=== PATIENT | female | born 1990 | race Asian ===

== ENCOUNTER 2016-11-10 08:30 | Emergency (ER) | payer OTHER ==
[2016-11-10 08:56] VITALS: BP 102/68
--- NOTE | 2016-11-10 09:35 | UC ---
Complaint Female HPI - HPI Summary HPI Summary: C/O SHABAZZ/WHITE THICK STICKY VAGINAL DISCHARGE AND ITCHING. SOME BURNING WITH URINATION. NO FREQUENCY. PT HAS HAD YEAST INFECTIONS BEFORE AND THIS FEELS SIMILAR. NO HIGH RISK SEXUAL ACTIVITY. NO FEVER. - History Of Current Complaint Stated Complaint: FREQUENT URINATION Time Seen by Provider: 11/10/16 08:32 Hx Obtained From: Patient Hx Last Menstrual Period: 09/23/16 Onset/Duration: Gradual Onset, Still Present Timing: Constant Severity Initially: Mild Severity Currently: Mild Pain Intensity: 2 Pain Scale Used: 0-10 Numeric Aggravating Factor(s): Nothing Alleviating Factor(s): Nothing Associated Signs And Symptoms: Positive: Vaginal Discharge - Allergies/Home Medications Allergies/Adverse Reactions: Allergies Allergy/AdvReac Type Severity Reaction Status Date / Time No Known Allergies Allergy Verified 11/10/16 08:49 PMH/Surg Hx/FS Hx/Imm Hx Previously Healthy: Yes - Surgical History Surgical History: Yes Surgery Procedure, Year, and Place: breast biopsy - Family History Known Family History: Negative: Hypertension - Social History Alcohol Use: Occasionally Substance Use Type: None Smoking Status (MU): Never Smoked Tobacco - Immunization History Most Recent Influenza Vaccination: fall 2015 Review of Systems Constitutional: Negative Respiratory: Negative Cardiovascular: Negative Gastrointestinal: Negative Genitourinary: Dysuria, Other - VAGINAL D/C All Other Systems Reviewed And Are Negative: Yes Physical Exam Triage Information Reviewed: Yes Appearance: Well-Appearing, No Pain Distress, Well-Nourished Vital Signs: Initial Vital Signs Temp 97.9 F 11/10/16 08:50 Pulse 60 11/10/16 08:50 Resp 16 11/10/16 08:50 BP 102/68 11/10/16 08:50 Pulse Ox 100 11/10/16 08:50 Vital Signs Reviewed: Yes Eyes: Positive: Conjunctiva Clear ENT: Positive: Hearing grossly normal Neck: Positive: Supple Respiratory: Positive: No respiratory distress, No accessory muscle use Cardiovascular: Positive: Pulses Normal Abdomen Description: Positive: Nontender, Soft Musculoskeletal: Positive: No Edema Neurological: Positive: Alert Psychological: Positive: Age Appropriate Behavior Skin: Negative: rashes Diagnostics - Laboratory Diagnostic Studies Completed/Ordered: URINE DIP SP. GR. 1.000 Complaint Female Dx - Course Course Of Treatment: PT HAS APPT FOR STI SCREENING AND PELVIC AT [facility] NEXT WEEK. SHE WOULD PREFER TO DEFER PELVIC AT THIS TIME. WILL TREAT EMPIRICALLY FOR YEAST VAGINITIS. ADVISED PT THAT IF SX DO NOT IMPROVE SHE MAY HAVE A DIFFERENT FORM OF VAGINITIS AND WILL NEED TO BE RE-EVALUATED. - Differential Dx/Diagnosis Provider Diagnoses: VAGINITIS Discharge - Discharge Plan Condition: Stable Disposition: HOME Prescriptions: Fluconazole [Diflucan] 1 tab PO ONCE #2 tab Patient Education Materials: Vaginitis (ED) Referrals: Kathie Arnett NP [Primary Care Provider] - If Needed Additional Instructions: FOLLOW-UP PCP OR [facility] IF NEEDED
== END 2016-11-10 09:15 | disposition home or self-care (01) ==
LOC: UCEAST 08:30
DX: N76.0 Acute vaginitis (principal)
CPT/HCPCS: 81002; 99212; G0463

== ENCOUNTER 2017-04-07 18:30 | Emergency (ER) | payer OTHER ==
[2017-04-07 18:37] VITALS: BP 104/65
[2017-04-07] MEDS ORDERED: Sulfamethox/Trimethoprim DS 800/160* TAB PO ONE ×2 (19:13)
--- NOTE | 2017-04-08 00:09 | UC ---
Lopez Grossman Aidan, scribed for Tessie Alex MD on 04/07/17 at 1913 . Complaint Female HPI - HPI Summary HPI Summary: 26 y/o female presents to the Urgent Care with a complaint of acute, moderate episodes of dysuria and urgency that has worsened as the day has progressed. She also has acute, mild suprapubic abdominal tenderness. Symptoms were first noticed this morning. The patient just took a test that was negative and recently had an IUD placed. Pt took azo prior to coming to . Pt is a new graduate of [employer] and is currently residing in [place], and is here for a wedding. Other than taking seasonal allergy medication, she is not currently on any chronic medication. Pt denies any allergies to medications. - History Of Current Complaint Chief Complaint: [facility]CGU Stated Complaint: FREQUENT URINATION Time Seen by Provider: 04/07/17 18:42 Hx Obtained From: Patient Hx Last Menstrual Period: 03/07/17 ?: No Onset/Duration: Sudden Onset, Lasting Hours, Still Present Timing: Intermittent, Lasting Minutes - before and during urination Severity Initially: Moderate Severity Currently: Moderate Pain Intensity: 4 Pain Scale Used: 0-10 Numeric Radiates to: pain does not radiate Character: Burning Aggravating Factor(s): Nothing Alleviating Factor(s): Nothing Associated Signs And Symptoms: Negative: Negative - urgency, mild suprapubic abdominal tenderness, Fever, Back Pain, Vaginal Bleeding/Discharge, Vaginal Discharge - Risk Factors Ovarian Torsion Risk Factor: Reproductive Age - Allergies/Home Medications Allergies/Adverse Reactions: Allergies Allergy/AdvReac Type Severity Reaction Status Date / Time No Known Allergies Allergy Verified 04/07/17 18:35 Home Medications: Home Medications Phenazopyridine HCl [Azo Urinary Pain Relief] 95 mg PO PRN 04/07/17 [History] PMH/Surg Hx/FS Hx/Imm Hx Previously Healthy: Yes - Surgical History Surgical History: Yes Surgery Procedure, Year, and Place: breast biopsy - Family History Known Family History: Positive: Diabetes Negative: Hypertension - Social History Occupation: Unemployed - Pt just graduated [employer] at [employer] Lives: Alone Alcohol Use: Occasionally Substance Use Type: None Smoking Status (MU): Never Smoked Tobacco - Immunization History Most Recent Influenza Vaccination: fall 2015 Review of Systems Constitutional: Negative Skin: Negative Eyes: Negative ENT: Negative Respiratory: Negative Cardiovascular: Negative Gastrointestinal: Negative Genitourinary: Dysuria, Frequency, Urgency Motor: Negative Neurovascular: Negative Musculoskeletal: Negative Neurological: Negative Psychological: Negative All Other Systems Reviewed And Are Negative: Yes Physical Exam Triage Information Reviewed: Yes Appearance: Well-Appearing, Well-Nourished, Pain Distress Vital Signs: Initial Vital Signs Temp 98.4 F 04/07/17 18:34 Pulse 70 04/07/17 18:34 Resp 16 04/07/17 18:34 BP 104/65 04/07/17 18:34 Pulse Ox 98 04/07/17 18:34 Vital Signs Reviewed: Yes Eyes: Positive: Conjunctiva Clear ENT: Positive: Normal ENT inspection, Hearing grossly normal. Negative: Muffled /hoarse voice Neck: Positive: Supple Respiratory: Positive: Lungs clear, Normal breath sounds, No respiratory distress Cardiovascular: Positive: RRR, No Murmur, Pulses Normal, Brisk Capillary Refill Abdomen Description: Positive: No Organomegaly, Soft. Negative: Nontender - minimal suprapubic tenderness, CVA Tenderness (R), CVA Tenderness (L), Distended , Guarding, Hepatomegaly, McBurney's Point Tenderness, Peritoneal Signs, Pulsatile Mass, Splenomegaly Bowel Sounds: Positive: Present Musculoskeletal: Positive: Strength Intact, ROM Intact Neurological: Positive: Alert, Muscle Tone Normal Psychological Exam: Normal Skin Exam: Normal Complaint Female Dx - Course Course Of Treatment: 26 y/o female presents with intermittent episodes of dysuria and urgency. test was negative. Pt had taken azo prior to coming to , so urine was sent for culture, and she will be treated empirically. She will be given bactrim and discharged with a dx of UTI. - Differential Dx/Diagnosis Differential Diagnosis/HQI/PQRI: Renal Colic, Ureteral Stone, Urinary Tract Infection Provider Diagnoses: Urinary Tract Infection Discharge - Discharge Plan Condition: Stable Disposition: HOME Patient Education Materials: Urinary Tract Infection in Women (ED) Referrals: Kathie Arnett NP [Primary Care Provider] - Additional Instructions: We have phone a prescription to [facility] pharmacy in [place] for Bactrim DS twice a day for 7 days, and fluconazole 150mg x 1, may repeat in 1 week. Go to an ER or urgent care if any new or worsening symptoms. The documentation as recorded by the scribe, ,Doug accurately reflects the service I personally performed and the decisions made by me, Tessie Alex MD.
== END 2017-04-07 19:24 | disposition home or self-care (01) ==
LOC: UCEAST 18:30
DX: N39.0 Urinary tract infection, site not specified (principal)
CPT/HCPCS: 84702; 87086; 99212; A9270-GY; G0463